=== PATIENT | female | born 1990 | race Caucasian/White ===

== ENCOUNTER 2019-08-14 20:59 | Inpatient (IN) | payer OTHER ==
[2019-08-14] MEDS ORDERED: LORazepam 2 MG/ML INJ IV STA (21:44)
[2019-08-14] MEDS ORDERED: SODIUM CHLORIDE 0.9% 1,000 ML IV STA (21:44)
--- NOTE | 2019-08-14 21:44 | ED ---
Alcohol HPI - General Chief Complaint: Alcohol Stated Complaint: ETOH Time Seen by Provider: 08/14/19 21:10 Source: patient, EMS Mode of arrival: EMS Limitations: no limitations - History of Present Illness Initial Comments: The patient is a 29-year-old female with past medical history of alcohol abuse who presents to the emergency department with reported palpitations. The patient normally drinks a "significant" amount of alcohol daily. States today that she did drink 4 beers. She has also been abusing Suboxone and gabapentin which was previously prescribed to her mother. She has also been taking Lyrica prescribed her in excess. States she has not taken her mom's medications in 3 days. She was in rehab at [place] during June. States that she had to leave because her mother got sick and ended up dying on July 24. Reports that she's been taking her mom's medications because she she is depressed. She denies intentionally trying to hurt herself. No suicidal or homicidal ideations. No hallucinations. At this time she does believe that she is withdrawing from the Suboxone. She reports to palpitations. She reports to nausea without vomiting. Denies abdominal pain. No headaches or visual changes. No fevers or chills. She denies the possibility of being . Started her menstrual cycle today. No urinary or bowel changes. Her depression is normally managed by her main management doctor. States she's been never hospitalized for mental health reasons. There are no other alleviating, precipitating or modifying factors - Related Data Home Medications Medication Instructions Recorded Confirmed Citalopram Hydrobromide [CeleXA] 20 mg PO DAILY 08/14/19 08/14/19 Dextroamphetamine/Amphetamine 20 mg PO DAILY 08/14/19 08/14/19 [Adderall Xr] Pregabalin [Lyrica] 75 mg PO BID 08/14/19 08/14/19 Venlafaxine HCl ER [Effexor Xr] 75 mg PO BID 08/14/19 08/14/19 Allergies Allergy/AdvReac Type Severity Reaction Status Date / Time amoxicillin Allergy Rash/Hives Verified 08/14/19 21:31 Review of Systems ROS Statement: Those systems with pertinent positive or pertinent negative responses have been documented in the HPI. ROS Other: All systems not noted in ROS Statement are negative. Past Medical History Past Medical History: No Reported History Past Surgical History: Orthopedic Surgery Past Psychological History: ADD/ADHD, Anxiety, Bipolar, Depression, Panic Disorder Smoking Status: Current every day smoker Past Alcohol Use History: Daily Past Drug Use History: Cocaine, Marijuana General Exam Limitations: no limitations General appearance: alert, in no apparent distress Head exam: Present: atraumatic, normocephalic, normal inspection Eye exam: Present: normal appearance, PERRL, EOMI. Absent: scleral icterus, conjunctival injection, periorbital swelling ENT exam: Present: normal exam, mucous membranes moist Neck exam: Present: normal inspection. Absent: tenderness, meningismus, lymphadenopathy Respiratory exam: Present: normal lung sounds bilaterally. Absent: respiratory distress, wheezes, rales, rhonchi, stridor Cardiovascular Exam: Present: regular rate, normal rhythm, normal heart sounds. Absent: systolic murmur, diastolic murmur, rubs, gallop, clicks GI/Abdominal exam: Present: soft, normal bowel sounds. Absent: distended, tenderness, guarding, rebound, rigid Extremities exam: Present: normal inspection, full ROM, normal capillary refill. Absent: tenderness, pedal edema, joint swelling, calf tenderness Back exam: Present: normal inspection Neurological exam: Present: alert, oriented X3, CN II-XII intact Psychiatric exam: Present: normal affect, normal mood Skin exam: Present: warm, dry, intact, normal color. Absent: rash Course Vital Signs 08/14/19 21:03 Temperature 97.3 F L Pulse Rate 95 Respiratory 18 Rate Blood Pressure 132/82 O2 Sat by Pulse 93 L Oximetry Medical Decision Making - Medical Decision Making Upon arrival the patient is placed into room 12. She is hooked up to continuous pulse ox and cardiac monitoring. Peripheral IV had been established by EMS. She was given 1 mg of Ativan for palpitations. Laboratory studies show 1+ protein, trace blood and rare mucous in the urine. HCG not detected. Urine drug screen is negative. Alcohol level is 297. AST 48. I reevaluated the patient. She states she feels much improved. I discussed the results with the patient. As her alcohol level is 297 I did recommend hospital admission for detoxication. The patient did agree to this. [facility] were [facility]. The patient remained in stable condition awaiting a bed on the floor - Lab Data Result diagrams: 08/14/19 22:00 08/14/19 22:00 Lab Results 08/14/19 08/14/19 08/14/19 Range/Units 21:50 21:50 22:00 WBC (3.8-10.6) k/uL RBC (3.80-5.40) m/uL Hgb (11.4-16.0) gm/dL Hct (34.0-46.0) % MCV (80.0-100.0) fL MCH (25.0-35.0) pg MCHC (31.0-37.0) g/dL RDW (11.5-15.5) % Plt Count (150-450) k/uL Neutrophils % % Lymphocytes % % Monocytes % % Eosinophils % % Basophils % % Neutrophils # (1.3-7.7) k/uL Lymphocytes # (1.0-4.8) k/uL Monocytes # (0-1.0) k/uL Eosinophils # (0-0.7) k/uL Basophils # (0-0.2) k/uL Sodium 144 (137-145) mmol/L Potassium 4.4 (3.5-5.1) mmol/L Chloride 105 (98-107) mmol/L Carbon Dioxide 25 (22-30) mmol/L Anion Gap 14 mmol/L BUN 11 (7-17) mg/dL Creatinine 0.69 (0.52-1.04) mg/dL Est GFR (CKD-EPI)AfAm >90 (>60 ml/min/1.73 sqM) Est GFR (CKD-EPI)NonAf >90 (>60 ml/min/1.73 sqM) Glucose 86 (74-99) mg/dL Calcium 9.6 (8.4-10.2) mg/dL Total Bilirubin 0.5 (0.2-1.3) mg/dL AST 48 H (14-36) U/L ALT 35 (9-52) U/L Alkaline Phosphatase 109 (38-126) U/L Total Protein 8.3 H (6.3-8.2) g/dL Albumin 4.9 (3.5-5.0) g/dL Urine Color Light Yellow Urine Appearance Clear (Clear) Urine pH 6.0 (5.0-8.0) Ur Specific [place] 1.006 (1.001-1.035) Urine Protein 1+ H (Negative) Urine Glucose (UA) Negative (Negative) Urine Ketones Negative (Negative) Urine Blood Trace H (Negative) Urine Nitrite Negative (Negative) Urine Bilirubin Negative (Negative) Urine Urobilinogen <2.0 (<2.0) mg/dL Ur Leukocyte Esterase Negative (Negative) Urine RBC 1 (0-5) /hpf Urine WBC <1 (0-5) /hpf Urine Mucus Rare H (None) /hpf Urine HCG, Qual Not Detected (Not Detectd) Urine Opiates Screen Not Detected (NotDetected) Ur Oxycodone Screen Not Detected (NotDetected) Urine Methadone Screen Not Detected (NotDetected) Ur Propoxyphene Screen Not Detected (NotDetected) Ur Barbiturates Screen Not Detected (NotDetected) U Tricyclic Antidepress Not Detected (NotDetected) Ur Phencyclidine Scrn Not Detected (NotDetected) Ur Amphetamines Screen Not Detected (NotDetected) U Methamphetamines Scrn Not Detected (NotDetected) U Benzodiazepines Scrn Not Detected (NotDetected) Urine Cocaine Screen Not Detected (NotDetected) U Marijuana (THC) Screen Not Detected (NotDetected) Serum Alcohol 297 H* mg/dL 08/14/19 Range/Units 22:00 WBC 7.1 (3.8-10.6) k/uL RBC 4.89 (3.80-5.40) m/uL Hgb 14.0 (11.4-16.0) gm/dL Hct 41.6 (34.0-46.0) % MCV 85.0 (80.0-100.0) fL MCH 28.6 (25.0-35.0) pg MCHC 33.6 (31.0-37.0) g/dL RDW 14.2 (11.5-15.5) % Plt Count 398 (150-450) k/uL Neutrophils % 75 % Lymphocytes % 19 % Monocytes % 4 % Eosinophils % 1 % Basophils % 0 % Neutrophils # 5.3 (1.3-7.7) k/uL Lymphocytes # 1.4 (1.0-4.8) k/uL Monocytes # 0.3 (0-1.0) k/uL Eosinophils # 0.1 (0-0.7) k/uL Basophils # 0.0 (0-0.2) k/uL Sodium (137-145) mmol/L Potassium (3.5-5.1) mmol/L Chloride (98-107) mmol/L Carbon Dioxide (22-30) mmol/L Anion Gap mmol/L BUN (7-17) mg/dL Creatinine (0.52-1.04) mg/dL Est GFR (CKD-EPI)AfAm (>60 ml/min/1.73 sqM) Est GFR (CKD-EPI)NonAf (>60 ml/min/1.73 sqM) Glucose (74-99) mg/dL Calcium (8.4-10.2) mg/dL Total Bilirubin (0.2-1.3) mg/dL AST (14-36) U/L ALT (9-52) U/L Alkaline Phosphatase (38-126) U/L Total Protein (6.3-8.2) g/dL Albumin (3.5-5.0) g/dL Urine Color Urine Appearance (Clear) Urine pH (5.0-8.0) Ur Specific [place] (1.001-1.035) Urine Protein (Negative) Urine Glucose (UA) (Negative) Urine Ketones (Negative) Urine Blood (Negative) Urine Nitrite (Negative) Urine Bilirubin (Negative) Urine Urobilinogen (<2.0) mg/dL Ur Leukocyte Esterase (Negative) Urine RBC (0-5) /hpf Urine WBC (0-5) /hpf Urine Mucus (None) /hpf Urine HCG, Qual (Not Detectd) Urine Opiates Screen (NotDetected) Ur Oxycodone Screen (NotDetected) Urine Methadone Screen (NotDetected) Ur Propoxyphene Screen (NotDetected) Ur Barbiturates Screen (NotDetected) U Tricyclic Antidepress (NotDetected) Ur Phencyclidine Scrn (NotDetected) Ur Amphetamines Screen (NotDetected) U Methamphetamines Scrn (NotDetected) U Benzodiazepines Scrn (NotDetected) Urine Cocaine Screen (NotDetected) U Marijuana (THC) Screen (NotDetected) Serum Alcohol mg/dL Disposition Clinical Impression: Alcoholic intoxication Disposition: ADMITTED IP TO THIS [facility] Condition: Stable Is patient prescribed a controlled substance at d/c from ED?: No Referrals: Nonstaff,Physician [Primary Care Provider] - 1-2 days Decision to Admit Reason: Admit from EC Decision Date: 08/14/19 Decision Time: 23:03
[2019-08-14 22:10] LABS: Appearance,Urine Clear (Clear); Bilirubin,Urine Negative (Negative); Blood,Urine Trace (Negative); Color,Urine Light Yellow; Glucose,Urine (UA) Negative (Negative); Ketones,Urine Negative (Negative); Leukocyte Esterase,Urine Negative (Negative); Mucus,Urine Rare /hpf; Nitrite,Urine Negative (Negative); Protein,Urine 1+ (Negative); RBC,Urine 1 /hpf (0-5); Specific Gravity,Urine 1.006 (1.001-1.035); Urobilinogen,Urine <2.0 mg/dL (<2.0); WBC,Urine <1 /hpf (0-5)
[2019-08-14 22:11] LABS: Basophils % (A) 0 %; Eosinophils # (A) 0.1 k/uL (0-0.7); Eosinophils % (A) 1 %; HCT 41.6 % (34.0-46.0); Lymphocytes # (A) 1.4 k/uL (1.0-4.8); Lymphocytes % (A) 19 %; MCH 28.6 pg (25.0-35.0); MCHC 33.6 g/dL (31.0-37.0); Monocytes # (A) 0.3 k/uL (0-1.0); Monocytes % (A) 4 %; Neutrophils # (A) 5.3 k/uL (1.3-7.7); Neutrophils % (A) 75 %; Platelet Count 398 k/uL (150-450); RBC 4.89 m/uL (3.80-5.40); RDW 14.2 % (11.5-15.5); WBC 7.1 k/uL (3.8-10.6)
[2019-08-14 22:12] LABS: Amphetamine Screen,Urine Not Detected (NotDetected); Barbiturate Screen,Urine Not Detected (NotDetected); Benzodiazepines Screen,Urine Not Detected (NotDetected); Cocaine Screen,Urine Not Detected (NotDetected); Methadone Screen, Urine Not Detected (NotDetected); Opiate Screen,Urine Not Detected (NotDetected); Oxycodone Screen, Urine Not Detected (NotDetected); Phencyclidine Screen,Urine Not Detected (NotDetected); Tricyclic Antidepressant,Urine Not Detected (NotDetected); Urn Cannabinoid Scrn Not Detected (NotDetected)
[2019-08-14 22:18] LABS: ALT 35 U/L (9-52); AST 48 U/L (14-36); African American GFR (CKD) >90 (>60 ml/min/1.73 sqM); Albumin 4.9 g/dL (3.5-5.0); Alkaline Phosphatase 109 U/L (38-126); Anion Gap 14 mmol/L; Blood Urea Nitrogen 11 mg/dL (7-17); Calcium 9.6 mg/dL (8.4-10.2); Carbon Dioxide 25 mmol/L (22-30); Chloride 105 mmol/L (98-107); Glucose 86 mg/dL (74-99); Potassium 4.4 mmol/L (3.5-5.1); Sodium 144 mmol/L (137-145); Total Bilirubin 0.5 mg/dL (0.2-1.3); Total Protein 8.3 g/dL (6.3-8.2)
[2019-08-14 22:20] LABS: Alcohol 297 mg/dL
[2019-08-14] MEDS ORDERED: THIAMINE 100 MG/ML 2 ML VIAL IM STA (23:03)
[2019-08-14] MEDS ORDERED: NALOXONE 0.4 MG/ML 1 ML VIAL IV PRN (23:04)
[2019-08-15] MEDS: SODIUM CHLORIDE 0.9% 1,000 ML IV SCH ×3 (01:17→20:31)
[2019-08-15] MEDS: LORazepam 2 MG/ML INJ IV PRN ×7 (02:30→22:15)
[2019-08-15 07:16] LABS: Basophils % (A) 1 %; Eosinophils % (A) 1 %; HCT 37.4 % (34.0-46.0); HGB 12.4 gm/dL (11.4-16.0); Lymphocytes # (A) 1.3 k/uL (1.0-4.8); Lymphocytes % (A) 26 %; MCH 28.7 pg (25.0-35.0); MCV 86.8 fL (80.0-100.0); Mean Platelet Volume 6.4; Monocytes # (A) 0.3 k/uL (0-1.0); Monocytes % (A) 5 %; Neutrophils # (A) 3.3 k/uL (1.3-7.7); Neutrophils % (A) 66 %; Platelet Count 299 k/uL (150-450); RBC 4.31 m/uL (3.80-5.40); RDW 14.2 % (11.5-15.5)
[2019-08-15 07:24] LABS: African American GFR (CKD) >90 (>60 ml/min/1.73 sqM); Anion Gap 10 mmol/L; Blood Urea Nitrogen 11 mg/dL (7-17); Calcium 8.6 mg/dL (8.4-10.2); Carbon Dioxide 23 mmol/L (22-30); Chloride 107 mmol/L (98-107); Glucose 78 mg/dL (74-99); Potassium 4.3 mmol/L (3.5-5.1); Sodium 140 mmol/L (137-145)
[2019-08-15] MEDS ORDERED: CITALOPRAM HYDROBROMIDE 20 MG TAB PO SCH (09:00)
[2019-08-15] MEDS ORDERED: VENLAFAXINE HCL ER 75 MG CAP PO SCH (09:00)
[2019-08-15] MEDS ORDERED: [UNRECOGNIZED DRUG - REMARK] PO SCH (09:00)
--- NOTE | 2019-08-15 12:09 | P.HPIM ---
History of Present Illness H&P Date: 08/15/19 Chief Complaint: EtOH intoxication 29-year-old female with past medical history of alcohol abuse who presents to the emergency department with reported palpitations. The patient normally drinks a "significant" amount of alcohol daily. States today that she did drink 4 beers. She has also been abusing Suboxone and gabapentin which was previously prescribed to her mother. She has also been taking Lyrica prescribed her in excess. States she has not taken her mom's medications in 3 days. She was in rehab at [place] during June. States that she had to leave because her mother got sick and ended up dying on July 24. Reports that she's been taking her mom's medications because she she is depressed. She denies intentionally trying to hurt herself. No suicidal or homicidal ideations. No hallucinations. At this time she does believe that she is withdrawing from the Suboxone. She reports to palpitations. She reports to nausea without vomiting. Denies ab dominal pain. No headaches or visual changes. No fevers or chills. She denies the possibility of being . Started her menstrual cycle today. No urinary or bowel changes. Her depression is normally managed by her main management doctor. States she's been never hospitalized for mental health reasons. There are no other alleviating, precipitating or modifying factors Review of Systems Constitutional: Denies chills, Denies fever Eyes: denies blurred vision Ears, nose, mouth and throat: Denies epistaxis Cardiovascular: Denies chest pain, Denies dyspnea on exertion Respiratory: Denies cough with sputum Gastrointestinal: Denies abdominal pain, Denies nausea, Denies vomiting Genitourinary: Denies dysuria, Denies hematuria Musculoskeletal: Denies frequent falls Integumentary: Denies color changes Neurological: Denies confusion, Denies double vision Endocrine: Denies cold intolerance, Denies heat intolerance Past Medical History Past Medical History: No Reported History History of Any Multi-Drug Resistant Organisms: None Reported Past Surgical History: Orthopedic Surgery Additional Past Surgical History / Comment(s): R ankle sx 2012 Past Psychological History: ADD/ADHD, Anxiety, Bipolar, Depression, Panic Disorder Smoking Status: Current every day smoker Past Alcohol Use History: Daily Past Drug Use History: Cocaine, Marijuana Medications and Allergies Home Medications Medication Instructions Recorded Confirmed Type Citalopram Hydrobromide [CeleXA] 20 mg PO DAILY 08/14/19 08/14/19 History Dextroamphetamine/Amphetamine 20 mg PO DAILY 08/14/19 08/14/19 History [Adderall Xr] Pregabalin [Lyrica] 75 mg PO BID 08/14/19 08/14/19 History Venlafaxine HCl ER [Effexor Xr] 75 mg PO BID 08/14/19 08/14/19 History Allergies Allergy/AdvReac Type Severity Reaction Status Date / Time amoxicillin Allergy Rash/Hives Verified 08/14/19 21:31 Physical Exam Vitals: Vital Signs Temp Pulse Pulse Resp BP BP Pulse Ox 08/15/19 07:00 98.6 F 85 16 107/68 97 08/15/19 00:07 98.3 F 86 18 127/78 93 L 08/15/19 00:00 18 08/14/19 21:03 97.3 F L 95 18 132/82 93 L Intake and Output 08/14/19 08/15/19 08/15/19 22:59 06:59 14:59 Other: Voiding Method Toilet Toilet # Voids 1 Weight 68.039 kg Limitations: no limitations General appearance: alert, in no apparent distress Head exam: Present: atraumatic, normocephalic, normal inspection Eye exam: Present: normal appearance, PERRL, EOMI. Absent: scleral icterus, conjunctival injection, periorbital swelling ENT exam: Present: normal exam, mucous membranes moist Neck exam: Present: normal inspection. Absent: tenderness, meningismus, lymphadenopathy Respiratory exam: Present: normal lung sounds bilaterally. Absent: respiratory distress, wheezes, rales, rhonchi, stridor Cardiovascular Exam: Present: regular rate, normal rhythm, normal heart sounds. Absent: systolic murmur, diastolic murmur, rubs, gallop, clicks GI/Abdominal exam: Present: soft, normal bowel sounds. Absent: distended, tenderness, guarding, rebound, rigid Extremities exam: Present: normal inspection, full ROM, normal capillary refill. Absent: tenderness, pedal edema, joint swelling, calf tenderness Back exam: Present: normal inspection Neurological exam: Present: alert, oriented X3, CN II-XII intact Psychiatric exam: Present: normal affect, normal mood Skin exam: Present: warm, dry, intact, normal color. Absent: rash Results CBC & Chem 7: 08/15/19 06:09 08/15/19 06:09 Labs: Abnormal Lab Results - Last 24 Hours (Table) 08/14/19 08/14/19 Range/Units 21:50 22:00 AST 48 H (14-36) U/L Total Protein 8.3 H (6.3-8.2) g/dL Urine Protein 1+ H (Negative) Urine Blood Trace H (Negative) Urine Mucus Rare H (None) /hpf Serum Alcohol 297 H* mg/dL Assessment and Plan Assessment: 1. EtOH intoxication - Patient is admitted to telemetry; [facility] protocol in place; patient is requiting Ativan for possible EtOH withdrawal versus anxiety - We will start patient on IV fluids, banana bag' start oral thiamine and folic acid; and Librium 10 mg by mouth 3 times a day and taper as able - Seizure precautions - BRIDAL CONSULTANT consulted for discharge planning 2. Bipolar disorder; patient is restarted on home dose of Celexa 20 mg daily; psych is consulted and recommendations are pending 3. Anxiety/panic disorder; continue with Ativan when necessary; continue home dose of Effexor XR 75 mg twice a day 4. ADHD; Adderall XR 20 mg daily 5. Transaminitis possibly due to chronic alcohol use; monitor liver enzymes and order ultrasound of abdomen if continue to worsen 6. Polysubstance abuse; psych consult as indicated above 7. DVT prophylaxis; SCDs/early ambulation CODE STATUS; full code Time with Patient: Greater than 30
[2019-08-15] MEDS ORDERED: SODIUM CHLORIDE 0.9% 1,000 ML with MVI, ADULT NO.4 WITH VIT K 10 ML, THIAMINE 100 MG, F... IV ONE ×4 (12:30)
[2019-08-15] MEDS ORDERED: VENLAFAXINE HCL ER 75 MG CAP PO STA (14:01)
[2019-08-15] MEDS: NALTREXONE HCL 50 MG TAB PO SCH (14:57)
[2019-08-15] MEDS: THIAMINE 100 MG TAB PO SCH (17:53)
[2019-08-16] MEDS: LORazepam 2 MG/ML INJ IV PRN ×3 (00:27→15:07)
[2019-08-16] MEDS: SODIUM CHLORIDE 0.9% 1,000 ML IV SCH ×3 (05:24→21:06)
[2019-08-16] MEDS: NALTREXONE HCL 50 MG TAB PO SCH (09:25)
[2019-08-16] MEDS: THIAMINE 100 MG TAB PO SCH ×2 (09:26→16:33)
[2019-08-16] MEDS: VENLAFAXINE HCL ER 150 MG CAP PO SCH (09:26)
[2019-08-16] MEDS: NICOTINE 14MG/24HR PATCH TRANSDERM SCH (09:30)
--- NOTE | 2019-08-16 16:34 | P.PN ---
Subjective Progress Note Date: 08/16/19 Principal diagnosis: 29-year-old female with past medical history of alcohol abuse who presents to the emergency department with reported palpitations. The patient normally drinks a "significant" amount of alcohol daily. States today that she did drink 4 beers. She has also been abusing Suboxone and gabapentin which was previously prescribed to her mother. She has also been taking Lyrica prescribed her in excess. States she has not taken her mom's medications in 3 days. She was in rehab at [place] during June. States that she had to leave because her mother got sick and ended up dying on July 24. Reports that she's been taking her mom's medications because she she is depressed. She denies intentionally trying to hurt herself. No suicidal or homicidal ideations. No hallucinations. At this time she does believe that she is withdrawing from the Suboxone. She reports to palpitations. She reports to nausea without vomiting. Denies abdominal pain. No headaches or visual changes. No fevers or chills. She denies the possibility of being . Started her menstrual cycle today. No urinary or bowel changes. Her depression is normally managed by her main management doctor. States she's been never hospitalized for mental health reasons. There are no other alleviating, precipitating or modifying factors 08/16/2019 Patient is lying in bed asleep but easily arousable in no acute distress. States she is having some nausea and lack of appetite at this time. Awaiting psychiatry consultation at this time. Patient denies any chest pain, shortness of breath, or palpitations at this time. Patient denies any vomiting but is having some nausea and reported some diarrhea last night into this morning. Patient denies any suicidal ideation or thoughts of harming others. Patient states that she goes on binges and was doing well but has recently lost her mother in June and has been increasing her drinking with liquor and beer. Will continue to monitor closely. Patient currently still has CI[facility] protocol in place but only required a small amount of Ativan around midnight last night. Patient is not currently feeling as if she is withdrawing from alcohol at this time. Will continue to monitor. Guarded prognosis. Objective - Vital Signs Vital signs: Vital Signs Temp 98.5 F 08/16/19 15:00 Pulse 71 08/16/19 15:00 Resp 16 08/16/19 15:00 BP 136/78 08/16/19 15:00 Pulse Ox 98 08/16/19 15:00 Intake & Output 08/15/19 08/16/19 08/16/19 18:59 06:59 18:59 Intake Total 700 1650 Balance 700 1650 Intake: Intake, IV Titration 700 650 Amount Sodium Chloride 0.9% 1, 700 650 000 ml @ 100 mls/hr IV . Q10H ANGELI Rx#:[id number] Oral 1000 Other: Voiding Method Toilet Toilet # Voids 3 1 - Exam Gen: This is a 29-year-old female lying in bed sleeping but easily arousable in no acute distress. Vital signs are stable. Temp is 98.8F, pulse is 60, respirations are 18, blood pressure is 110/73, oxygen saturation is 98% on room air. HEENT: Head is atraumatic, normocephalic. Pupils equal, round. Sclerae is anicteric. NECK: Supple. No JVD. No lymphadenopathy. No thyromegaly. LUNGS: Clear to auscultation. No wheezes or rhonchi. No intercostal r etractions. HEART: Regular rate and rhythm. No murmur. ABDOMEN: Soft. Bowel sounds are present. No masses. No tenderness. EXTREMITIES: No pedal edema. No calf tenderness. NEUROLOGICAL: Patient is asleep but easily arousable, alert and oriented x3. Appearance is disheveled. Cranial nerves 2 through 12 are grossly intact. - Labs CBC & Chem 7: 08/15/19 06:09 08/15/19 06:09 Assessment and Plan Assessment: 1. EtOH intoxication - Patient is admitted to telemetry; [facility] protocol in place; patient was requiring Ativan for possible EtOH withdrawal versus anxiety - We will start patient on IV fluids, banana bag' start oral thiamine and folic acid; and Librium 10 mg by mouth 3 times a day and taper as able - Seizure precautions - YARD ASSISTANT consulted for discharge planning 2. Bipolar disorder; patient is restarted on home dose of Celexa 20 mg daily; psych is consulted and recommendations are pending 3. Anxiety/panic disorder; continue with Ativan when necessary; continue home dose of Effexor XR 75 mg twice a day 4. ADHD; Adderall XR 20 mg daily 5. Transaminitis possibly due to chronic alcohol use; monitor liver enzymes and order ultrasound of abdomen if continue to worsen 6. Polysubstance abuse; psych consult as indicated above 7. DVT prophylaxis; SCDs/early ambulation CODE STATUS; full code Discussion and recommendations: Recommend continue current medications, management, and symptomatically treatment. Psychiatry was consulted and is pending at this time. CIWA protocol is still in place. Patient only required a small dose of Ativan last night around midnight. Patient denies any thoughts of wanting to harm herself or others and denies any suicidal ideation at this time. Patient continues to feel nauseated and discussed with the patient about slowly reintroducing diet to avoid nausea and vomiting. Will continue to monitor vital signs and labs closely. Guarded prognosis. Further recommendations to follow. Possible discharge in 24-48 hours.
[2019-08-17] MEDS: LORazepam 2 MG/ML INJ IV PRN (00:11)
[2019-08-17 02:36] VITALS: RESP 18; TEMP 98.6
[2019-08-17] MEDS: NICOTINE 14MG/24HR PATCH TRANSDERM SCH (09:02)
[2019-08-17] MEDS: NALTREXONE HCL 50 MG TAB PO SCH (09:02)
[2019-08-17] MEDS: VENLAFAXINE HCL ER 150 MG CAP PO SCH (09:03)
[2019-08-17] MEDS: THIAMINE 100 MG TAB PO SCH (09:03)
[2019-08-17] MEDS ORDERED: LORazepam 0.5 MG TAB PO PRN (09:12)
[2019-08-17 13:56] VITALS: BP 158/94; PULSE 58
[2019-08-17] MEDS ORDERED: LORazepam 2 MG/ML INJ IV PRN ×3 (14:35)
--- NOTE | 2019-08-17 15:00 | P.DS ---
Providers Date of admission: 08/17/19 11:35 Expected date of discharge: 08/17/19 Attending physician: Leticia Francisco Consults: 08/14/19 23:05 Consult Physician Urgent Consulting Provider: Jaspreet Bonilla Consult Reason/Comments: depression, polysubstance abuse Do you want consulting provider notified?: Yes Primary care physician: Physician Nonstaff Hospital Course: Final diagnosis EtOH intoxication Alcohol abuse Bipolar disorder Anxiety/ panic disorder ADHD Transaminitis Polysubstance abuse DVT prophylaxis Discharge disposition Patient is being discharged in a stable condition with guarded prognosis to home. Patient will follow-up with psychiatry in the outpatient setting as well as [place] or [place] rehab upon discharge. Patient will be going to stay with her grandma and father in [place]. Total time taken is 35 minutes. History of present illness This is a 29-year-old female who was admitted with alcohol intoxication and was having palpitations. Patient is denying any chest pain, shortness of breath, or palpitations at this time. Patient denies any nausea or vomiting and is tolerating diet. Patient is not actively going through any withdrawals at this time. Patient will need to follow-up with rehab in the outpatient setting once stabilized. Discussed with the patient about following up with psychiatry upon discharge as well and patient agrees. Patient denies any thoughts of wanting to harm herself or others and denies any suicidal ideations. Patient is arranging for a place to stay and will be going to her grandma's in [place] upon di scharge. Discussed with the patient at length about refraining from any alcohol at this time. Patient does not currently have a primary care provider and resources were provided to her upon discharge. Currently patient's condition is stable with much improvement and will be discharged today. Patient will be sent home on a Librium taper and was again encouraged to refrain from all alcohol intake. Patient is afebrile. Guarded prognosis. On exam vital signs are stable. Temp is 98.6F, pulse is 58, respirations are 18, blood pressure is 158/94, oxygen saturation is 96% on room air. Her to S1 and S2 are normal. Respiratory system shows clear to auscultation. Abdomen is soft and non-tender. Nervous system shows no focal deficits and gait is steady. Please refer to medication reconciliation sheet for a list of medications. Patient Condition at Discharge: Stable Plan - Discharge Summary New Discharge Prescriptions: New chlordiazePOXIDE HCl [Librium] 10 mg PO TID #12 cap Thiamine [Vitamin B-1] 100 mg PO BID-W/MEALS #60 tab Continue Venlafaxine HCl ER [Effexor XR] 75 mg PO BID Pregabalin [Lyrica] 75 mg PO BID Dextroamphetamine/Amphetamine [Adderall Xr] 20 mg PO DAILY Citalopram Hydrobromide [CeleXA] 20 mg PO DAILY Discharge Medication List Citalopram Hydrobromide [CeleXA] 20 mg PO DAILY 08/14/19 [History] Dextroamphetamine/Amphetamine [Adderall Xr] 20 mg PO DAILY 08/14/19 [History] Pregabalin [Lyrica] 75 mg PO BID 08/14/19 [History] Venlafaxine HCl ER [Effexor XR] 75 mg PO BID 08/14/19 [History] Thiamine [Vitamin B-1] 100 mg PO BID-W/MEALS #60 tab 08/17/19 [Rx] chlordiazePOXIDE HCl [Librium] 10 mg PO TID #12 cap 08/17/19 [Rx] Follow up Appointment(s)/Referral(s): Darrell Llanso MD [REFERRING] - 1 Week Activity/Diet/Wound Care/Special Instructions: Activity Limited until follow-up New current diet and advance as tolerated Continue taking Librium and titrate slowly over the next 3 days. Follow-up with primary care provider this week Follow-up with psychiatry outpatient Follow-up with rehab [place] Avoid all alcohol intake Discharge Disposition: HOME SELF-CARE
== END 2019-08-17 15:58 | disposition home or self-care (01) | DRG 897 ==
LOC: EC 20:59 → 4SSUR 23:04 → OBSVTOIN 08-17 11:35
PROVIDERS: ADMIT Hospitalist; ATTEND Hospitalist
DX: F10.129 Alcohol abuse with intoxication, unspecified (principal); F17.210 Nicotine dependence, cigarettes, uncomplicated; F31.9 Bipolar disorder, unspecified; F41.0 Panic disorder [episodic paroxysmal anxiety]; F90.9 Attention-deficit hyperactivity disorder, unspecified type; Y90.8 Blood alcohol level of 240 mg/100 ml or more; Z79.899 Other long term (current) drug therapy; R74.0 Nonspecific elevation of levels of transaminase and lactic acid dehydrogenase [LDH]
CPT/HCPCS: 36415; 80048; 80053; 80306; 80320; 81001; 81025; 82075; 85025; 96361; 96374; 99285